=== PATIENT | female | born 1955 | race African-American/Black ===

== ENCOUNTER 2017-05-12 12:58 | Outpatient (RCR) | payer OTHER ==
[~2017-05-12 12:58] MED LIST: ACYCLOVIR400 MG ORAL; ATORVASTATIN CA10 MG PO; CYCLOBENZAPRINE10 MG ORAL; EFFEXOR XR75 MG PO; GABAPENTIN800 MG ORAL; LOSARTAN-HCTZ1 EACH ORAL; MELOXICAM15 MG PO; NAPROXEN500 MG PO; NEURONTIN300 MG PO; SIMVASTATIN10 MG ORAL; SIMVASTATIN20 MG ORAL; TENORMIN50 MG PO; TRAMADOL HCL50 MG ORAL; VENLAFAXINE HCL25 MG ORAL
== END 2017-05-19 | disposition home or self-care (01) ==
LOC: PTY 12:58
DX: M25.512 Pain in left shoulder (principal)

== ENCOUNTER 2017-06-17 11:00 | Outpatient (RCR) | payer OTHER | END 2017-06-18 | disposition home or self-care (01) | LOC: PTY 11:00 | DX: M25.512 Pain in left shoulder (principal); M54.2 Cervicalgia | CPT/HCPCS: 97110; 97140; G0283 ==

== ENCOUNTER → 2017-07-19 | Outpatient (RCR) | payer OTHER | END | disposition home or self-care (01) | LOC: PTY 06-20 09:56 | DX: M25.512 Pain in left shoulder (principal); M54.2 Cervicalgia | CPT/HCPCS: 97035; 97110; 97140; G0283 ==

== ENCOUNTER 2017-08-16 11:00 | Outpatient (RCR) | payer OTHER | END 2017-08-18 | disposition home or self-care (01) | LOC: PTY 11:00 | DX: M25.512 Pain in left shoulder (principal); M54.2 Cervicalgia | CPT/HCPCS: 97110; 97140; G0283 ==